=== PATIENT | female | born 1960 | race Caucasian/White ===

== ENCOUNTER 2021-01-23 22:48 | Emergency (ER) | payer OTHER ==
[~2021-01-23] VITALS: Ht 165.1 cm; Wt 75.0 kg
[2021-01-23] MEDS ORDERED: PROPARACAINE OPHTH 0.5%, 15ML ONE (23:12)
[2021-01-23] MEDS ORDERED: FLUORESCEIN OPHTHALMIC 1 MG STRIP ONE (23:12)
--- NOTE | 2021-01-23 23:17 | NUR ---
REEXAMINER: from triage pt walked straight to eye wash station to flush out solution. pt states eyes feel slightly better after flushing eyes.
[2021-01-23] MEDS ORDERED: FLUORESCEIN OPHTHALMIC 1 MG STRIP EACHEYE ONE (23:30)
[2021-01-23] MEDS ORDERED: PROPARACAINE OPHTH 0.5%, 15ML EACHEYE ONE (23:30)
--- NOTE | 2021-01-23 23:30 | NUR ---
Frankie RN: Per request by SANDRA Marie, immediate irrigate started on bilateral eyes. Eyes irrigated x 2L each eye bilaterally. Pt AO x 4. Skin PWD. Resp even and unlabored. Pt tolerating irrigation well.
--- NOTE | 2021-01-24 01:04 | NUR ---
2 more eye drops applied to each eye per provider approval
[2021-01-24 01:17] VITALS: BP 100/50
--- NOTE | 2021-01-24 01:17 | NUR ---
Erythromycin eye ointment administered by pt.
[2021-01-24] MEDS ORDERED: ERYTHROMYCIN OPHTH 0.5%, 1GM EACHEYE ONE (01:30)
== END 2021-01-24 01:42 | disposition home or self-care (01) ==
LOC: ED 01-24 01:15
DX: H10.213 Acute toxic conjunctivitis, bilateral (principal); H57.13 Ocular pain, bilateral
CPT/HCPCS: 99284